=== PATIENT | male | born 1955 | race Caucasian/White ===

== ENCOUNTER 2018-08-13 13:05 | Outpatient (CLI) | payer MEDICARE ==
--- NOTE | 2018-08-13 16:21 | MRI ---
MRI OF THE PROSTATE WITHOUT AND WITH CONTRAST 08/13/18 HISTORY: Prostate cancer. Radiation therapy planning. TECHNIQUE: Multiplanar and multisequence MRI images were obtained of the prostate without and with contrast. FINDINGS: There is mild hypertrophy of the central gland consistent with BPH. Along the left aspect of the pros osborne, there is a 1.9 cm lesion demonstrating low T2 signal. This involves the peripheral zone of the prostate near the mid gland extending towards the apex. This also may extend slightly into the centra l gland. This abuts the prostate capsule along the periphery in the region of the neurovascular bundl e on this side. No restricted diffusion is seen in this region and low signal seen on ADC map in this region. No other suspicious lesions are seen in the prostate. The seminal vesicles appear intact. The right neurovascular bundle is removed from the lesion seen in the left aspect of the prostate. No pelvic adenopathy is seen. No marrow signal abnormality is present. IMPRESSION: There is a lesion in the left aspect of the prostate described above. This lesion appears to involve both the peripheral and transitional zones. Because it is greater than 1.5 cm in dimension, this woul d be categorized as a PIRADS category V lesion with a very high likelihood that a clinically signific ant cancer is present. POS: MIESHA
== END 2018-08-13 13:06 | disposition home or self-care (01) ==
LOC: TBSIIMAG 13:05
PROVIDERS: ATTEND Radiology Radiation Oncology
DX: C61 Malignant neoplasm of prostate (principal); N42.89 Other specified disorders of prostate
CPT/HCPCS: 72197; 82565